=== PATIENT | female | born 1935 | race Caucasian/White ===

== ENCOUNTER 2018-09-13 10:48 | Outpatient (CLI) | payer MEDICARE, BC, OTHER ==
--- NOTE | 2018-09-13 13:04 | CT ---
CT LUMBAR SPINE WITHOUT CONTRAST: INDICATIONS: History of back pain after a fall three weeks ago. FINDINGS: There is a superior endplate compression abnormality of L2, of undetermined chronicity. There is gra de 1 anterolisthesis of L5 on S1, which is likely degenerative in nature. There is advanced facet os teoarthrosis at L5-S1. There is loss of normal disk height, in addition to facet degenerative change , at L5-S1, inducing moderate to severe bilateral neural foraminal narrowing. At L4-L5, there is moderate bilateral neural foraminal narrowing due to a broad-based disk bulge and facet joint degenerative change. There is at least mild central canal narrowing due to the broad-bas ed bulge and ligamentum flavum hypertrophy. At L3-L4, there is a broad-based bulge with facet hypertrophy, inducing at least mild central canal n arrowing with mild to moderate bilateral neural foraminal narrowing. At L2-L3, there is a broad-based bulge with facet hypertrophy, inducing at least mild central canal n arrowing and mild bilateral neural foraminal narrowing. At L1-L2, there is a broad-based disk osteophyte complex with facet hypertrophy, inducing at least mi ld central canal narrowing and mild bilateral neural foraminal narrowing. There is a 2 cm exophytic lesion involving the superior pole of the right kidney, consistent with a c yst. There are moderate calcifications involving the abdominopelvic vasculature. IMPRESSION: 1. Age indeterminate superior endplate compression fracture at L2. The appearance of some mild infl ammatory straightening in and around the area suggests that this is likely an acute superior endplate compression abnormality. A whole body bone scan may be helpful to document acuity. 2. Multilevel spondylosis with multilevel central canal and neural foraminal narrowing demonstrated. 3. Exophytic superior pole right renal cyst. POS: [facility]
== END 2018-09-13 10:49 | disposition home or self-care (01) ==
LOC: SCSCT 10:48
PROVIDERS: ATTEND Nurse Practitioner Family
DX: M48.062 Spinal stenosis, lumbar region with neurogenic claudication (principal); M47.816 Spondylosis without myelopathy or radiculopathy, lumbar region; M99.83 Other biomechanical lesions of lumbar region; N28.1 Cyst of kidney, acquired
CPT/HCPCS: 72131

== ENCOUNTER 2019-04-18 03:25 | Inpatient (IN) | payer MEDICARE, BC, OTHER ==
[2019-04-18] MEDS ORDERED: Morphine 2 MG/ML SYRINGE ONE (05:00)
[2019-04-18] MEDS ORDERED: Dexamethasone 4 MG TAB PO SCH (07:15)
[2019-04-18] MEDS ORDERED: Acetaminophen 325 MG TAB PO PRN (07:34)
[2019-04-18] MEDS ORDERED: Ondansetron ODT 4 MG TAB PO PRN (07:34)
[2019-04-18] MEDS ORDERED: Senokot S 8.6-50 MG TAB PO PRN (07:34)
[2019-04-18] MEDS ORDERED: hydrALAZINE 20 MG/ML VIAL SLOW IVP PRN (07:34)
[2019-04-18] MEDS ORDERED: Loperamide HCl 2 MG CAP PO PRN (07:34)
[2019-04-18] MEDS ORDERED: Loratadine 10 MG TAB PO PRN (07:34)
[2019-04-18] MEDS ORDERED: HYDROcodone/Acetaminophen 5/325 mg Tablet PO PRN (07:34)
[2019-04-18] MEDS ORDERED: Zolpidem Tartrate 5 MG TAB PO PRN (07:34)
[2019-04-18] MEDS ORDERED: Ondansetron PF 4 MG/2 ML Vial IVP PRN (07:34)
[2019-04-18] MEDS ORDERED: Calcium Carbonate 500 MG ChewTAB PO PRN (07:34)
[2019-04-18] MEDS ORDERED: Bisacodyl 10 MG SUPP PR PRN (07:34)
[2019-04-18] MEDS ORDERED: Cepastat Lozenges 1 LOZ PO PRN (07:34)
[2019-04-18] MEDS ORDERED: Sodium Chloride 0.65% Nasal 44 ML BOT EA NARE PRN (07:34)
[2019-04-18] MEDS ORDERED: Diabetic Tussin 200 MG/10 ML UDCUP PO PRN (07:34)
[2019-04-18 07:38] VITALS: BMI 28.3
[2019-04-18 08:21] LABS: #Monocytes 0.1 thou/uL (0.11-0.59); #Neutrophils 5.7 thou/uL (1.40-6.50); %Basophils 0.2 % (0.0-1.0); %Eosinophils 0.6 % (0.0-10.0); %Lymphocytes 14.1 % (21.0-51.0); %Monocytes 1.4 % (0.0-10.0); %Neutrophils 83.7 % (42.0-75.0); Hemoglobin 15.7 g/dL (12.0-16.0); Mean Corpuscular HGB CONC 34.3 g/dL (32.0-36.0); Mean Corpuscular Hemoglobin 32.2 pg (27.0-31.0); Mean Corpuscular Volume 93.7 fL (78.0-98.0); Mean Platelet Volume 7.4 fL (7.4-10.4); Platelet Count 207 thou/uL (130-400); RBC Distribution Width 11.8 % (11.5-14.5); Red Blood Cell (RBC) Count 4.87 mill/uL (4.20-5.40); White Blood Cell (WBC) Count 6.9 thou/uL (4.8-10.8)
[2019-04-18 08:41] LABS: ALT (SGPT) 16 U/L (8-55); AST (SGOT) 22 U/L (5-34); Albumin 4.6 g/dL (3.4-4.8); Alkaline Phosphatase 107 U/L (40-150); Anion Gap 16 mmol/L (10-20); BUN (Urea Nitrogen) 16 mg/dL (9.8-20.1); Bilirubin, Total 1.2 mg/dL (0.2-1.2); Calc. Creatinine Clearance 46 mL/min (70-130); Calcium 10.6 mg/dL (7.8-10.44); Carbon Dioxide 26 mmol/L (23-31); Chloride 91 mmol/L (98-107); Estimated GFR-MDRD 46; Globulin 3.1 g/dL (2.4-3.5); Glucose 134 mg/dL (83-110); Potassium 3.8 mmol/L (3.5-5.1); Protein, Total 7.7 g/dL (6.0-8.3); Sodium 129 mmol/L (136-145)
[2019-04-18] MEDS ORDERED: Famotidine 20 MG TAB PO SCH (09:00)
[2019-04-18] MEDS ORDERED: traMADol HCl 50 MG TAB PO PRN ×2 (09:27→10:11)
[2019-04-18 11:34] LABS: PTT 27.8 SEC (22.9-36.1); Prothrombin Time 13.3 SEC (12.0-14.7)
[2019-04-18] MEDS: Dexamethasone 4 MG TAB PO SCH ×3 (11:42→23:18)
--- NOTE | 2019-04-18 11:55 | HP ---
PRIMARY CARE PHYSICIAN: Kev Regalado MD REASON FOR ADMISSION: Transferred from [facility] for diagnosis of brain mass. HISTORY OF PRESENT ILLNESS: An 84-year-old female, who has underlying history of COPD as well as chronic respiratory failure, on home oxygen on as needed basis, especially during nighttime, who was complaining of nausea and weakness and lower extremity pain. This symptoms are going on for about 7 days. As per the patient's family member, they went to [facility] about 7 to 10 days ago. At that time, the patient had CT abdomen and pelvis. As per family member, they found spot in liver. She was given symptomatic treatment for nausea and she was discharged from emergency room. She was given Zofran on discharge from ER. With that treatment, the patient felt better, but her symptoms again returned on Monday. She was having nausea. She was having bilateral lower extremity pain. She does have low back pain as well and she is following Dr. Casanova for her back injection periodically. She was also having headache, which was in right-sided occipital region, throbbing in nature, associated with nausea, but no vomiting. The patient was given morphine and Decadron at [facility]. After that, her pain subsided. After first emergency room visit on April 11, 2019, the patient found with liver lesion, which was suspected for metastatic disease and that is why they planned for outpatient oncology workup. The patient also seen by primary care physician on Monday and the patient had a chest x-ray done on Monday, which showed some suspected upper lobe mass. Subsequently, the patient underwent CT of the chest , but results are not known. The patient was given Phenergan today and that helped her nausea as well. The patient was somnolent after Phenergan and she was having lower extremity twitching pain. She also has underlying restless legs syndrome. Since emergency room treatment at [facility], the patient does not have any more pain. Over there, she had CT brain and they found a some brain mass and that is why she was sent to our hospital for higher level of care. PAST MEDICAL HISTORY: 1. History of breast cancer, treated with bilateral mastectomy. She also had lymph node dissection. She finished hormonal therapy, but she is off treatment for a period of time. 2. COPD. The patient has home oxygen requirement and she is using during nighttime. 3. Gastroesophageal reflux disease. 4. Hypertension. 5. Dyslipidemia. 6. Chronic respiratory failure, on home oxygen therapy. PAST SURGICAL HISTORY: Pacemaker placement, bilateral mastectomy, cholecystectomy, tonsillectomy, and hysterectomy. PAST PSYCHIATRIC HISTORY: Reviewed and negative. SOCIAL HISTORY: The patient lives with her daughter. No history of tobacco, alcohol, or illicit drug abuse. She is ex-smoker, quit smoking more than 10 years ago. FAMILY HISTORY: No family history of coronary artery disease, stroke, or cancer. ALLERGIES: AZITHROMYCIN, CODEINE, AND HYDROCODONE. CURRENT HOME MEDICATIONS: 1. Advair Diskus 250/50 one inhalation daily. 2. Amlodipine 5 mg daily. 3. Aspirin 81 mg daily. 4. Lipitor 40 mg p.o. daily. 5. Azelastine nasal spray daily. 6. Buspirone 7.5 mg daily. 7. Coreg 3.125 mg b.i.d. 8. Celecoxib 200 mg p.o. daily. 9. Clonidine 0.1 mg as needed. 10. Gabapentin 100 mg 3 times daily. 11. Losartan with hydrochlorothiazide 50/12.5 one tablet daily. 12. Singulair 10 mg daily. 13. Protonix 40 mg p.o. daily. 14. ProAir HFA as needed basis. 15. Spiriva 18 mcg inhalation daily. 16. Tramadol 50 mg q.6 hourly p.r.n. 17. Ambien 5 mg p.o. daily. EMERGENCY ROOM COURSE: In the emergency room, the patient has received morphine 2 mg and she is given Decadron 10 mg, IV fluid, and morphine 2 mg and Zofran 4 mg at [facility]. REVIEW OF SYSTEM: All review of system reviewed and negative except as mentioned in HPI. PHYSICAL EXAMINATION: VITAL SIGNS: In our emergency room, blood pressure 164/98, pulse 83, respiratory rate 18, temperature 98.4, and saturation 93% on 2 L oxygen. Weight 79.4 kg. GENERAL: The patient is currently alert, awake, hypertensive. No obvious acute distress. HEENT: Head; normocephalic, atraumatic. Eyes; pupils are round and reactive to light. Extraocular muscle intact. ENT; oropharynx within normal limits. Moist mucous membranes. No oral lesion. No pharyngeal erythema. No exudate. NECK: Supple. No JVD. No thyromegaly. No carotid bruit. No jugular venous distention. LUNGS: Clear to auscultation without any rhonchi or rales. CARDIAC: S1 and S2. Regular without any murmur. No gallop. No rub. ABDOMEN: Soft. Bowel sounds present. Nontender. Nondistended. No organomegaly. No mass. No suprapubic tenderness. BACK: No point tenderness in upper extremities. Passive movement of all joints are normal. Lower extremity, no edema. Good distal pulsation. SKIN: No skin rash. HEMATOLOGICAL SYSTEM: No lymphadenopathy. PSYCHIATRIC: Normal affect. SIGNIFICANT LABS: Currently CBC, WBC of 6.9, hemoglobin 15.7, and platelet 207. BMP; sodium 129, potassium 3.8, chloride 91, carbon dioxide 26, BUN 16, creatinine 1.12, glucose 134, and calcium 10.6. LFT; AST 22, ALT 16, alkaline phosphatase 107, and albumin 4.6. CT brain done at [facility] showing 1.8-cm mass within left cerebellum with surrounding edema, which result in enhancement of fourth ventricle. The patient also has bifrontal edema suspicious for metastatic lesion. I have reviewed CBC, CMP, and emergency room course and record from [facility]. ASSESSMENT AND PLAN: 1. Nausea, headache, focal motor weakness. The patient also found with left cerebellar mass with vasogenic edema suspicious for metastatic lesion. This patient had a CT abdomen and pelvis at [facility] that we will obtain records to see if she has any metastatic lesion to liver. She also had a chest x-ray recently, which showed some abnormality finding and she also had a CT chest over there. We will obtain medical record from them. At this point, the patient's presentation is most likely related with metastatic lesion. Source unclear, but given the patient's previous history of breast cancer, possibility of a metastatic breast cancer is possible. At this point, Neurosurgeon has been consulted. Oncology has been consulted and further treatment decision will defer to them. 2. Lumbar stenosis with chronic low back pain. Pain will be controlled with pain medication. 3. Hyponatremia. The patient will be given gentle IV fluid with NS at 50 mL/h and we will do hyponatremia workup to rule out syndrome of inappropriate antidiuretic hormone secretion. 4. Hypertension. We will continue amlodipine 5 mg b.i.d. Losartan with hydrochlorothiazide 50/12.5 one tablet twice daily. 5. Chronic obstructive pulmonary disease with chronic respiratory failure. We will continue Dulera 2 puff inhalation b.i.d., DuoNeb q.6 hourly, Flonase nasal spray daily, and azelastine nasal spray daily. 6. Dyslipidemia. We will continue Lipitor 40 mg p.o. at bedtime. 7. Gastroesophageal reflux disease. We will continue Protonix 40 mg p.o. daily. 8. Deep venous thrombosis prophylaxis, SCD boots. 9. Gastrointestinal prophylaxis, Protonix 40 mg p.o. daily. 10. Code status: At this point, the patient has not decided about her code status. She wants to be a full code. 11. Disposition plan: Based on clinical course, plan of care discussed with the patient and family member in detail. Job ID: [id number] MTDD
--- NOTE | 2019-04-18 12:30 | CON ---
DATE OF CONSULTATION: REASON FOR CONSULT: Brain mass. HISTORY OF PRESENT ILLNESS: Ms. Olivo is a pleasant 84-year-old female, who was in her usual state of health until last week when she began to have significant nausea. She was seen in the [facility] and a CT scan was ordered, which showed a possible liver lesion, although I have no record of that. The patient was given nausea medicine and sent home. She followed up with her primary care that next Monday, who ordered a chest x-ray. There was apparently some haziness in the left upper lobe, so CT scan was ordered. She continued to have nausea and was given a prescription for Phenergan. She had her CT scan done on Monday. Again, results are unknown at this time. She began to take the Phenergan and had some altered mental status. That evening she was significantly confused and brought to [facility] for further evaluation. She underwent a head CT scan, which apparently showed a hyperdense mass measuring 1.8 cm within the left cerebellum. There was surrounding edema with additional regions of bifrontal edema suspicious for underlying metastatic lesions. She was transferred to this emergency room and admitted by Neurosurgery for further workup. The patient has been more lucid today, though she is slow to answer her questions. She denies any headache, blurred vision. No weakness in her extremities. She denies shortness of breath. No weight loss or poor appetite. She does have a remote history of breast cancer 21 years ago and has undergone bilateral mastectomy. Long tern smoker. History was obtained from the patient and daughter at bedside and review of medical records. PAST MEDICAL HISTORY: 1. Breast cancer. 2. COPD. 3. GERD. 4. Hyperlipidemia. 5. Hypertension. PAST SURGICAL HISTORY: 1. Bilateral mastectomy. 2. Pacemaker insertion. 3. Appendectomy. 4. Cholecystectomy. 5. Tonsillectomy. 6. Hysterectomy. ALLERGIES: AZITHROMYCIN, CODEINE, HYDROCODONE, PREDNISONE, PROPOXYPHENE, AND VICODIN, ALL OF WHICH MAKE HER NAUSEATED. HOME MEDICATIONS: 1. Advair Diskus. 2. Amlodipine 5 mg daily. 3. Aspirin 81 mg daily. 4. Atorvastatin 40 mg daily. 5. Buspirone 7.5 mg daily. 6. Coreg 3.125 mg daily. 7. Celecoxib 200 mg daily. 8. Clonidine 0.1 mg. 9. Gabapentin 100 mg. 10. Losartan hydrochlorothiazide. 11. Protonix 40 mg. 12. ProAir p.r.n. 13. Spiriva daily. 14. Tramadol p.r.n. 15. Zofran 5 mg p.r.n. FAMILY HISTORY: Noncontributory. SOCIAL HISTORY: , lives with her daughter. 60-pack year history of smoking. No alcohol or illicit drug use. REVIEW OF SYSTEMS: Ten-point review of systems is negative, except for noted in HPI. PHYSICAL EXAMINATION: VITAL SIGNS: Temperature 98.3, pulse 84, respiratory rate 18, BP 145/89. She is 94% on 2 L. GENERAL: Well-developed, well-nourished female, in no acute distress. HEENT: Normocephalic, atraumatic. Pupils are equal and reactive to light. NECK: Supple. CV: Regular rate and rhythm. LUNGS: Clear anterior. ABDOMEN: Soft and nontender. Bowel sounds are positive. There is no organomegaly. EXTREMITIES: No clubbing, cyanosis, or edema. SKIN: No rash. HEMATOLOGICAL: No petechiae or purpura. NEUROLOGICAL: Nonfocal. The patient is alert and oriented PERTINENT LABS AND X-RAYS: Current WBCs are 6.9, hemoglobin 15.7, hematocrit 45.6, platelet count is 207,000. She has 84% neutrophils, 14% lymphocytes. Sodium is 129, potassium is 3.8, chloride is 91, CO2 is 26, BUN is 16, creatinine is 1.12, calcium is 10.6, bilirubin is 1.2. AST is 22, ALT is 16, alkaline phosphatase is 107. Serum total protein is 7.7, albumin 4.6, globulin 3.1. IMAGING STUDIES: The patient had a CT of the chest, abdomen, and pelvis done at the [facility]. No reports or films are available. On CT scan per HPI from ER report only. ASSESSMENT: 1. 1.8 cm brain lesion. 2. Reported liver and lung lesion. DISCUSSION: The patient in discussion with family. She will obtain disk of the CT scan of her abdomen, pelvis, and chest. Once those are obtained, we will determine, if there is a lesion that we can be biopsied for diagnosis. Neurosurgery is seeing the patient for her brain lesions. I am sure she will have an MRI of her brain. Her calcium is slightly elevated on this admission, but review of her medical record last night shows a calcium of 9.5. She is getting IV hydration, and we will continue to monitor that. We will continue steroids q.6 hours and further recommendations will depend on biopsy and results. Job ID: [id number] MTDD
[2019-04-18] MEDS: Ipratropium Bromide 2.5 ml Neb NEB SCH ×2 (13:50→19:07)
--- NOTE | 2019-04-18 15:59 | CON ---
DATE OF CONSULTATION: HISTORY OF PRESENT ILLNESS: Briefly, Ms. Olivo is an 84-year-old female, who was taken to [facility] last night for lethargy, nausea, generalized weakness. She was at the [facility] last week for similar symptoms with a lesion on the liver that was found at that time. She was following up with her primary care, working up for possible metastatic disease. The patient's daughter states that she had breast cancer 21 years ago. She had bilateral mastectomy with 3 lymph nodes removed. There was no chemo or radiation at that time. She was meticulously followed up and until last week, she had no repeated symptoms or cancer tumors that were noted. She was transferred over to [facility] for consult with Oncology as well as Neurosurgery due to a lesion found in the cerebellum. She is resting in her hospital bed. She claims she has to urinate. She is nauseated. She is alert and oriented to person and place. She is normally a fairly independent woman. She lives with her daughter and son-in-law, and dresses herself and takes care of herself, prepares meals if she needs to. She states that her lower extremities have been more painful than normal, but this is "normal" due to some herniated disks that she has had for some time. Strength in the upper and lower extremities are good. Range of motion is normal. There are no lateralizing deficit. She has a slight right-sided facial droop when she smiles, but otherwise there are no motor deficits. There is a little bit of nystagmus horizontally. REVIEW OF SYSTEMS: A 10-point review of systems has been completed and is negative other than stated in the above HPI. ALLERGIES: ERYTHROMYCIN, CODEINE, HYDROCODONE, AND VICODIN. CURRENT MEDICATIONS: 1. Advair Diskus. 2. Amlodipine. 3. Aspirin. 4. Atorvastatin. 5. Azelastine. 6. Buspirone. 7. Carvedilol. 8. Celexa. 9. Clonidine. 10. Gabapentin. 11. Losartan/hydrochlorothiazide. 12. Montelukast. 13. Pantoprazole. 14. ProAir. 15. Spiriva. 16. Tramadol. 17. Zolpidem. PAST MEDICAL HISTORY: Breast cancer, COPD, GERD, HLD, and hypertension. PAST SURGICAL HISTORY: Peacemaker, bilateral mastectomy, cholecystectomy, tonsillectomy, and hysterectomy. SOCIAL HISTORY: The patient denies alcohol or drug use. She has no smoking history. She lives with her daughter and son-in-law in their home and is independent for most activities. PHYSICAL EXAMINATION: CONSTITUTIONAL: The patient is alert and oriented. VITAL SIGNS: She is afebrile, normotensive. HEENT: Head is normocephalic and atraumatic. Pupils are equal, round, and reactive to light. Extraocular movements are intact. Hearing is intact. Moist mucous membranes. RESPIRATIONS: Normal. Symmetric chest rise. Normal work of breathing. EXTREMITIES: Upper extremity, there is normal range of motion. Bilateral strength 5/5 in deltoids, biceps, triceps, planner/scheduler strength. Lower extremities, generalized weakness with hip flexion. Normal dorsiflexion and plantar flexion strength. No change in sensation bilaterally. NEURO: The patient is alert and oriented. Cranial nerves II through XII are tested and intact with the exception of a slight right-sided facial droop. Speech is spontaneous and fluent. There are no lateralizing motor or sensory deficits. She has mild nystagmus horizontally and [id number] is smooth bilaterally. IMAGING: CT of the head shows left cerebellar lesion following with several areas of edema. There is effacement of the fourth ventricle. ASSESSMENT AND PLAN: Ms. 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 Given her history, she potentially has a lesion on her liver as well. From a neurosurgical standpoint, we recommend MRI of the brain with and without contrast. If this is unable to be obtained due to her pacemaker, then we would recommend CT with and without contrast of the brain. She was given Decadron at [facility] and we recommend that she stays on steroid for swelling. We will discuss with the patient and family whether they want to move forward with surgery given the amount of swelling. However, her age would limit the likelihood of a significant positive outcome. Job ID: [id number]
--- NOTE | 2019-04-18 16:58 | PRG ---
DATE OF SERVICE: I personally interviewed and examined the patient, and agreed with documentation of Phuong Grider PA-C, dated 04/18/2019 from [facility] and from [facility]. Briefly, Lindsay Olivo is an 84-year-old woman with a very remote history of node-negative breast cancer, treated with surgery, but no adjuvant therapy who has been well for the last 20 years. She is a former smoker. With this history, she started complaining of nausea last week. Scan of the abdomen revealed a small lesion in the liver. Symptoms worsened and eventually evolved headache and vomiting. CT examination of the brain revealed a lesion in the cerebellum as well as likely lesions in the cerebral hemispheres with surrounding vasogenic edema suggestive of multiple metastases. There is a lack of Oncology call coverage at [facility]. She was transferred to [facility] for further treatment and workup. Overnight, Ms. Olivo was given Decadron and proton pump inhibitors. She is more alert now that the steroids are taking effect. She has a pacemaker precluding MR imaging of the brain. She had a CT of the chest, abdomen, and pelvis done at [facility], but the report is not available in the chart. I have reviewed it and I see an exophytic lesion in the kidney, one lesion in the liver. I am not sure if there are mediastinal nodes. There is a lung lesion. She is alert and she is oriented. She asked very pointed and insightful questions. Her cognitive function is normal. I do not find any cranial neuropathies. There might be some left end gaze nystagmus. There are any dysmetrias in the left hand, not the right. I do not find any lateralizing motor or sensory deficits. CT imaging shows effacement of the fourth ventricle from the left cerebral hemisphere lesion with surrounding vasogenic edema. In the right frontal lobe and the left frontal lobe, there are areas of vasogenic edema surrounding what is likely metastatic disease as well. My plan for Ms. Olivo is to have a definitive diagnosis made so that we can make more realistic predictions about her future treatments, their side effects, and their efficacy. I would like a contrast scan of the brain done with [facility] protocol because the most ideal scan is impossible. I will follow up the results of those tests. We will keep her on Decadron until we make a decision as to surgical intervention. The posterior fossa surgery in an 84-year-old have significant risk and morbidity, but without it, edema is likely to worsen and obstructive hydrocephalus could ensue. This may be preferable to her in the rigors of cancer treatment, and eventually the decision will be up to her. If, however, the lesion proves to be exquisitely sensitive to adjuvant therapies, like small cell cancer of the lung, we may be able to treat her without surgical intervention. Job ID: [id number] [facility]ALSkye
[2019-04-18 17:59] LABS: Bilirubin Negative (Negative); Blood, Urine Negative (Negative); Clarity CLEAR (Clear); Glucose, Urine (Dipstick) Negative (Negative); Leukocyte Negative (Negative); Nitrite Negative (Negative); Protein, Urine (Dipstick) Negative (Neg-Trace); Specific Gravity, Urine 1.005 (1.002-1.036); Urobilinogen 0.2 mg/dL (0.2-1.0); pH, Urine 6.5 (5.0-9.0)
[2019-04-18 18:02] LABS: Bacteria/HPF None Seen HPF (None Seen); Hyaline Casts/LPF 0-3 HYALINE CAST LPF (0-3 Hyaline); Pathc Cast-AUWi Flag 0.13 (0-2.49); RBC/HPF 0-3 HPF (0-3); Squamous Epithelial None Seen HPF (0-3); WBC/HPF None Seen HPF (0-3)
[2019-04-18 18:39] LABS: Creatinine, Urine 30.21 mg/dL (47-110)
[2019-04-18] MEDS: Mometasone/Formoterol 120 PUFF INHALER INH SCH (19:16)
[2019-04-18] MEDS ORDERED: Non-Formulary Item 1 EACH (Fluticasone/Salmeterol [Advair Diskus 250/50] 1 INH) PO SCH (21:00)
[2019-04-18] MEDS ORDERED: EZETIMIBE PO SCH (21:00)
[2019-04-18] MEDS ORDERED: SIMVASTATIN PO SCH (21:00)
[2019-04-18] MEDS ORDERED: Simvastatin 40 MG TAB PO SCH (21:00)
[2019-04-18] MEDS: Ezetimibe 10 MG TAB PO SCH (23:09)
[2019-04-18] MEDS: Amlodipine 5 MG TAB PO SCH (23:20)
[2019-04-18] MEDS: Morphine 4 MG/ML VIAL SLOW IVP PRN (23:21)
[2019-04-18] MEDS: Carvedilol 3.125 MG TAB PO SCH (23:21)
[2019-04-19] MEDS: Ipratropium Bromide 2.5 ml Neb NEB SCH ×4 (00:15→18:55)
[2019-04-19 05:46] LABS: #Lymphocytes 1.7 thou/uL (1.20-3.40); #Neutrophils 9.9 thou/uL (1.40-6.50); %Basophils 0.1 % (0.0-1.0); %Eosinophils 0.1 % (0.0-10.0); %Lymphocytes 13.4 % (21.0-51.0); %Monocytes 7.8 % (0.0-10.0); %Neutrophils 78.6 % (42.0-75.0); Hemoglobin 14.3 g/dL (12.0-16.0); Mean Corpuscular HGB CONC 33.9 g/dL (32.0-36.0); Mean Corpuscular Hemoglobin 31.9 pg (27.0-31.0); Mean Platelet Volume 7.5 fL (7.4-10.4); Platelet Count 225 thou/uL (130-400); RBC Distribution Width 12.3 % (11.5-14.5); White Blood Cell (WBC) Count 12.5 thou/uL (4.8-10.8)
[2019-04-19] MEDS: Dexamethasone 4 MG TAB PO SCH ×3 (05:57→17:49)
[2019-04-19 06:04] LABS: Anion Gap 16 mmol/L (10-20); BUN (Urea Nitrogen) 25 mg/dL (9.8-20.1); Calc. Creatinine Clearance 43 mL/min (70-130); Calcium 10.1 mg/dL (7.8-10.44); Carbon Dioxide 24 mmol/L (23-31); Chloride 99 mmol/L (98-107); Estimated GFR-MDRD 44; Glucose 142 mg/dL (83-110); Potassium 3.7 mmol/L (3.5-5.1); Sodium 135 mmol/L (136-145)
[2019-04-19] MEDS: Morphine 4 MG/ML VIAL SLOW IVP PRN (06:14)
[2019-04-19] MEDS: Mometasone/Formoterol 120 PUFF INHALER INH SCH ×2 (06:54→18:58)
[2019-04-19] MEDS ORDERED: Montelukast Sodium 10 mg Tablet PO SCH (09:00)
[2019-04-19] MEDS ORDERED: Spiriva 18 MCG CAP (Box of 5 Caps) INH SCH (09:00)
[2019-04-19] MEDS: Montelukast Sodium 10 mg Tablet PO SCH (09:19)
[2019-04-19] MEDS: Famotidine 20 MG TAB PO SCH (09:20)
[2019-04-19] MEDS: Amlodipine 5 MG TAB PO SCH ×2 (09:20→22:26)
[2019-04-19] MEDS: Carvedilol 3.125 MG TAB PO SCH ×2 (09:20→22:26)
[2019-04-19] MEDS ORDERED: Sodium Bicarbonate 2.5 MEQ/5 ML VIAL ONE (10:24)
[2019-04-19] MEDS ORDERED: Fentanyl 100 MCG/2 ML VIAL ONE (10:24)
[2019-04-19] MEDS ORDERED: Midazolam HCl 2 mg/2 ml Vial ONE (10:24)
--- NOTE | 2019-04-19 11:04 | PDOC.PN ---
- Subjective Encounter Start Date: 04/19/19 Encounter Start Time: 08:00 Patient seen and examined. No new complaints. No overnight events - Objective MAR Reviewed: Yes Vital Signs & Weight: Vital Signs (12 hours) Temp Pulse Resp BP BP Pulse Ox 04/19/19 09:20 79 04/19/19 08:00 94 L 04/19/19 07:13 97.9 F 79 18 115/74 90 L 04/19/19 07:02 99 04/19/19 07:01 77 18 99 04/19/19 06:54 77 16 99 04/19/19 04:00 98.3 F 87 18 122/81 93 L 04/19/19 00:15 84 16 92 L 04/19/19 00:00 98.1 F 84 20 154/94 H 92 L 04/18/19 23:20 84 128/86 Weight Weight 170 lb I&O: 04/18/19 04/19/19 04/20/19 06:59 06:59 06:59 Intake Total 1240 Balance 1240 Result Diagrams: 04/19/19 04:53 04/19/19 04:53 Phys Exam - Physical Examination Constitutional: NAD HEENT: PERRLA, moist MMs, sclera anicteric Neck: no JVD, supple Respiratory: no wheezing, no rales, no rhonchi Cardiovascular: RRR, no significant murmur, no rub Gastrointestinal: soft, non-tender, no distention, positive bowel sounds Musculoskeletal: no edema, pulses present Neurological: non-focal, normal sensation Lymphatic: no nodes Psychiatric: normal affect, A&O x 3 Skin: no rash, normal turgor Dx/Plan (1) Brain lesion Code(s): G93.9 - DISORDER OF BRAIN, UNSPECIFIED Status: Acute (2) Hyponatremia Code(s): E87.1 - HYPO-OSMOLALITY AND HYPONATREMIA Status: Acute (3) Lesion of lung Code(s): R91.1 - SOLITARY PULMONARY NODULE Status: Acute (4) Liver lesion Code(s): K76.9 - LIVER DISEASE, UNSPECIFIED Status: Acute (5) CKD (chronic kidney disease) stage 3, GFR 30-59 ml/min Code(s): N18.3 - CHRONIC KIDNEY DISEASE, STAGE 3 (MODERATE) Status: Chronic (6) COPD (chronic obstructive pulmonary disease) Status: Chronic (7) Chronic low back pain Code(s): M54.5 - LOW BACK PAIN; G89.29 - OTHER CHRONIC PAIN Status: Chronic (8) Chronic respiratory failure with hypoxia, on home O2 therapy Code(s): J96.11 - CHRONIC RESPIRATORY FAILURE WITH HYPOXIA; Z99.81 - DEPENDENCE ON SUPPLEMENTAL OXYGEN Status: Chronic (9) Dyslipidemia Code(s): E78.5 - HYPERLIPIDEMIA, UNSPECIFIED Status: Chronic (10) GERD (gastroesophageal reflux disease) Code(s): K21.9 - GASTRO-ESOPHAGEAL REFLUX DISEASE WITHOUT ESOPHAGITIS Status: Chronic (11) Hypertension Code(s): I10 - ESSENTIAL (PRIMARY) HYPERTENSION Status: Chronic - Plan cont current plan of care, plan discussed w/ family * today lung biopsy * will monitor today * possible DC tomorrow * medication reviewed as below * symptomatic treatment. * metastasis suspected but primary unknown * add mirapex for restless leg syndrome Review of Systems - Review of Systems Constitutional: negative: fever, chills, sweats, weakness, malaise, other Eyes: negative: Pain, Vision Change, Conjunctivae Inflammation, Eyelid Inflammation, Redness, Other ENT: negative: Ear Pain, Ear Discharge, Nose Pain, Nose Discharge, Nose Congestion, Mouth Pain, Mouth Swelling, Throat Pain, Throat Swelling, Other Respiratory: negative: Cough, Dry, Shortness of Breath, Hemoptysis, SOB with Excertion, Pleuritic Pain, Sputum, Wheezing Cardiovascular: negative: chest pain, palpitations, orthopnea, paroxysmal nocturnal dyspnea, edema, light headedness, other Gastrointestinal: negative: Nausea, Vomiting, Abdominal Pain, Diarrhea, Constipation, Melena, Hematochezia, Other Genitourinary: negative: Dysuria, Frequency, Incontinence, Hematuria, Retention , Other Musculoskeletal: negative: Neck Pain, Shoulder Pain, Arm Pain, Back Pain, Hand Pain, Leg Pain, Foot Pain, Other Skin: negative: Rash, Lesions, Wagner, Bruising, Other Neurological: negative: Weakness, Numbness, Incoordination, Change in Speech, Confusion, Seizures, Other - Medications/Allergies Allergies/Adverse Reactions: Allergies Allergy/AdvReac Type Severity Reaction Status Date / Time acetaminophen [From Vicodin] Allergy Intermediate Nausea Verified 04/18/19 08:43 codeine Allergy Intermediate Nausea Verified 04/18/19 08:43 azithromycin Allergy Mild Rash Verified 04/18/19 08:43 hydrocodone Allergy Mild Nausea Verified 04/18/19 08:43 Medications: Current Medications Hydrocodone Bitart/Acetaminophen ([place] 5/325) 1 tab PO Q4H PRN PRN Reason: Moderate Pain (4-6) Amlodipine Besylate (Norvasc) 5 mg PO BID [facility] Last Admin: 04/19/19 09:20 Dose: 5 mg Bisacodyl (Dulcolax) 10 mg DC DAILYPRN PRN PRN Reason: Constipation Calcium Carbonate (Tums) 1,000 mg PO Q4H PRN PRN Reason: Heartburn or Indigestion Carvedilol (Coreg) 3.125 mg PO BID [facility] Last Admin: 04/19/19 09:20 Dose: 3.125 mg Dexamethasone (Decadron) 4 mg PO Q6HR [facility] Last Admin: 04/19/19 05:57 Dose: 4 mg Ezetimibe (Zetia) 10 mg PO HS [facility] Last Admin: 04/18/19 23:09 Dose: Not Given Famotidine (Pepcid) 20 mg PO DAILY [facility] Last Admin: 04/19/19 09:20 Dose: 20 mg Guaifenesin (Robitussin Sf) 200 mg PO Q4H PRN PRN Reason: Cough Hydralazine HCl (Apresoline) 10 mg SLOW IVP Q4H PRN PRN Reason: SBP > 180 and HR < 70 Ipratropium [place] (Atrovent) 2.5 ml NEB [id number] [facility] Last Admin: 04/19/19 07:01 Dose: 2.5 ml Loperamide HCl (Imodium) 2 mg PO PRN PRN PRN Reason: Diarrhea/Loose Stools Loratadine (Claritin) 10 mg PO DAILYPRN PRN PRN Reason: Sinus Symptoms Mometasone Furoate/Formoterol Fumar (Dulera 200 Mcg/5 Mcg Inhaler) 2 puff INH BID-RT [facility] Last Admin: 04/19/19 06:54 Dose: 2 puff Montelukast Sodium (Singulair) 10 mg PO DAILY [facility] Last Admin: 04/19/19 09:19 Dose: 10 mg Morphine Sulfate (Morphine) 2 mg SLOW IVP Q4H PRN PRN Reason: Pain Last Admin: 04/19/19 06:14 Dose: 2 mg Ondansetron HCl (Zofran Odt) 4 mg PO Q6H PRN PRN Reason: Nausea/Vomiting Ondansetron HCl (Zofran) 4 mg IVP Q6H PRN PRN Reason: Nausea/Vomiting Senna/Docusate Sodium (Senokot S) 2 tab PO BID PRN PRN Reason: Constipation Simvastatin (Zocor) 40 mg PO HS [facility] Last Admin: 04/18/19 23:09 Dose: Not Given Sodium Chloride ([place] Nasal [place] 0.65%) 0 ml EA NARE QIDPRN PRN PRN Reason: Nasal Congestion Sodium Chloride (Flush - Normal Saline) 10 ml IVF Q12HR [facility] Last Admin: 04/19/19 09:20 Dose: 10 ml Sodium Chloride (Flush - Normal Saline) 10 ml IVF PRN PRN PRN Reason: Saline Flush Throat Lozenges (Cepastat Lozenges) 1 celena PO Q2H PRN PRN Reason: Sore Throat Tramadol HCl (Ultram) 50 mg PO Q6H PRN PRN Reason: Pain Zolpidem Tartrate (Ambien) 5 mg PO HSPRN PRN PRN Reason: Insomnia
--- NOTE | 2019-04-19 11:08 | CT ---
CT BRAIN WITH AND WITHOUT CONTRAST: DATE: 04/19/2019 TIME: 5:00 AM CLINICAL HISTORY: Brain lesion. COMPARISON: 04/18/[address] is referenced. FINDINGS: Hemorrhage: Areas of intrinsic hyperdensity related to intracranial lesions indicate hemorrhagic meta stases.. Ventricular system: Stable. Cerebral parenchyma: Rim-enhancing intra-axial lesion of the right frontal lobe measures 7 mm, with s urrounding vasogenic edema. Medial left parietal lobe rim enhancing, cortically based lesion measures 6 mm. Subcortical right posterior, superior temporal lesion with enhancement and surroundin g vasogenic edema measures 4 mm, posterior left periventricular lesion adjacent the left occipital horn with mild surrounding edema measures 4 mm, posterior right temporal lesion measures 6 mm, with s urrounding vasogenic edema, and dominant left cerebellar hemispheric enhancing lesion with surrounding vasogenic edema measures 3.4 cm. Midline shift: None. Calvarium: Normal. Visualized Paranasal sinuses: Clear. IMPRESSION: Numerous intra-axial metastatic lesions, with multifocal rim enhancement, as well as intrinsic hyperd ensity suggestive of hemorrhagic metastases. Transcribed Date/Time: 04/19/2019 11:16 AM
--- NOTE | 2019-04-19 12:02 | RAD ---
EXAM: XR Chest Insp/Exp PROVIDED CLINICAL HISTORY: Post biopsy of left upper lobe mass. A tiny pneumothorax was present post biopsy. COMPARISON: Study obtained at [facility] on 04/16/2019. FINDINGS: A dual-lead left subclavian cardiac pacemaking device remains in place. The left upper lobe mass is a gain seen partially obscured by overlying pacemaking device. A tiny left apical pneumothorax is present. No pleural effusion is seen. Biapical pleural-parenchymal scarring is present with emphysematous changes in the upper lung zones. Cardiac silhouette and pulmonary vasculature are within normal limits. Stable prominence of the left hilar region is noted. No other interval change. IMPRESSION: 1. Tiny left apical pneumothorax. 2. Left upper lobe mass. 3. Prominence left hilum which may be related to an enlarged left hilar lymph node.
--- NOTE | 2019-04-19 12:13 | CT ---
CT Lung Perc Biopsy CT GUIDED LEFT UPPER LOBE MASS BIOPSY: CLINICAL HISTORY: Left upper lobe mass with metastatic lesion in the posterior fossa on MRI brain.. PROCEDURE: After informed consent was obtained, the patient was placed on the CT scan table in the right posteri or oblique position. A noncontrasted CT scan with grid localizer in place was performed through the level of the left upper lobe mass. The patient's skin was prepped and draped in a standard sterile fashion and topical anesthesia with b uffered 1% lidocaine was performed. After a small skin incision was made, an 19-gauge needle was advanced just into the peripheral aspect of the left upper lobe mass. After adequate placement was co nfirmed with CT fluoroscopic imaging, 3 subsequent 20-gauge core biopsy specimens were obtained utilizing coaxial technique. The specimens were submitted to the pathologist for adequacy. Specimens were deemed adequate for interpretation. The introducer needle was removed, and hemostasis was achieved with direct pressure. Follow-up CT scan examination demonstrated tiny left-sided pneumothorax at site of biopsy without gayatri dence of hemorrhage or pleural fluid. The patient's vital signs remained stable during the procedure as well as post procedure. Patient was transported to her hospital room in stable condition . IMPRESSION: Technically successful percutaneous left upper lobe mass biopsy. Pathology results are pending.
--- NOTE | 2019-04-19 14:18 | RAD ---
XR Chest Insp/Exp History: [Lung biopsy] Comparison: Radiograph same day Findings: Interval improvement of the trace left apical pneumothorax. No new basilar pneumothorax. Le ft perihilar and upper lobe mass is similar. Impression: Size decrease left apical pneumothorax.
--- NOTE | 2019-04-19 17:16 | PRG ---
DATE OF SERVICE: 04/19/2019 I saw Ms. Olivo on rounds this afternoon. Phuong Grider PA-C, has seen her in the morning and then consulted with Radiation Oncology, Radiology, and Pathology about the results from today. Ms. Olivo is aware that the pathologist did not obtain a final report, but the likelihood is that this is a lung cancer. We are unsure of which type. When I see, Ms. Olivo is resting comfortably, eating and speaking with her daughter, who is in the room. She is awake and conversant. Her vitals are all stable. Cognitive function is intact. There are no cranial neuropathies. There is no lateralizing motor or sensory deficits. There is any dysmetria smaller than on the left side. Reviewed CT imaging of the brain with contrast. There is an avidly contrast-enhancing lesion in the left hemisphere of the cerebellum with surrounding vasogenic edema that looks like metastasis. There are two periventricular metastases with a small amount of enhancement and a large amount of perilesional edema in the parietal lobes bilaterally. There is also some edema in the frontal lobes bilaterally and most likely a small metastases on either side there as well. Total is five [address]-guided biopsy was done on the lung. Pathologists have the tissue, but no frozen report is available. I spent a few minutes talking with Ms. Olivo. She wants to go home over the weekend. She needs to remain on steroids and either proton pump inhibitor and H2 rickie while she is on the steroids. If this is small cell lung cancer, the adjuvant therapy should take care of the brain lesions. If it does not, and is lung cancer of another type, then left cerebellar lesion with perilesional edema is concerning. She can be treated with radiation therapy if she is in the hospital and we can use external ventricular drain for pressure control, but she may require surgical intervention anyway if swelling increases, surgical intervention may be warranted. If she wants to pursue aggressive treatment or she wants no treatment whatsoever, I think the left cerebellar hemisphere lesion will grow and the edema will enlarge and she develops obstructive hydrocephalus and slowly fade from consciousness. In the end commits her decision to make. I will follow up with her either in person or on the phone when the pathology results are available. Job ID: [id number] [facility]
[2019-04-19] MEDS ORDERED: Pramipexole Di-HCl 0.125 MG TAB PO SCH (21:00)
[2019-04-19] MEDS: Ezetimibe 10 MG TAB PO SCH (22:20)
--- NOTE | 2019-04-19 22:26 | CON ---
DATE OF CONSULTATION: 04/19/2019 Ms. Olivo is an 84-year-old female who appears to have a clinical stage IVB, [id number] lung carcinoma with brain metastasis. I am seeing her today to discuss her options with radiation therapy. HISTORY OF PRESENT ILLNESS: Ms. Olivo about a week ago states that she began sort of a downward spiral. She was having nausea that was pretty significant, but no vomiting. She was also having trouble getting out of bed and began experiencing some headaches. She was seen in the emergency room at [facility] late last week and got some IV fluids and felt much better. She had a good weekend. However, by Monday her symptoms had returned and she went back to the emergency room. She had seen her primary care doctor who was going to order CAT scans, but again by late Monday her symptoms had returned, so she was seen in the emergency room. She had a CT of the head that suggested a possible lesion in the cerebellum. She also had a CT of the chest, which showed 2 left upper lobe lung masses and a possible mass in the liver. Since there was no oncology services at [facility], she was transferred to [place] for workup and evaluation. She has been placed on dexamethasone. Her headaches have resolved and her nausea has resolved. She is feeling much better. Earlier today, she underwent a CT scan of the head with contrast as well as a biopsy of the left upper lobe lung mass. The CT showed multiple lesions in the brain. She has been seen by Medical Oncology and I have been asked to see her to discuss her options for treatment. Pathology is currently pending. Again, she states her headaches have resolved. She was having pain in the back of the right side of the head when she was initially admitted. She has been having some leg cramps as well as some worsening of her restless legs syndrome. She does have chronic back issues for which she has a neuropathy. Presently, she denies any back pain. Her shortness of breath is stable. She has no cough. She denies any weight loss up until her time of diagnosis. She voices no other complaints. PAST MEDICAL HISTORY: 1. Hypertension. 2. Oxygen dependent COPD. 3. History of breast cancer treated nearly 20 years ago with bilateral mastectomy. She did not have chemotherapy or radiation, but took tamoxifen for 5 years. 4. Pacemaker for left bundle branch block. 5. Degenerative disk changes in the lower back for which she sees Dr. Casanova. 6. Restless legs syndrome. 7. Neuropathy, which she has had for couple years with numbness in her left foot. 8. Status post appendectomy. 9. Status post JAMEY/BSO. 10. Status post cholecystectomy. MEDICATIONS ON ADMISSION: 1. Protonix. 2. Hyzaar. 3. PreserVision. 4. Lipitor. 5. Aspirin. 6. Amlodipine. 7. Calcium and vitamin D. 8. Celebrex. 9. Coreg. 10. Singulair. 11. Tramadol. 12. Presently, she is on dexamethasone 4 mg q.6 hours. ALLERGIES: AZITHROMYCIN, WHICH CAUSES A RASH. SHE REPORTS A SENSITIVITY TO PAIN MEDICATION WITH ITCHING, BUT NO RASH. THIS INCLUDES HYDROCODONE, CODEINE, AND ACETAMINOPHEN. SOCIAL HISTORY: She has no cigarette use at the present for the past 6 years. Prior to that, she smoked up to a pack per day for 60 years. She drinks 1-2 alcoholic beverages per day. She lives in town with her daughter and son-in-law. She is retired and is a . FAMILY HISTORY: Her mother at age 92 from dementia. Her father at age 86 from lung cancer. She had a brother who had brain cancer. She also had a son who had metastatic lung cancer. There is no family history of breast cancer. REVIEW OF SYSTEMS: A 12 system review of systems is otherwise negative. PHYSICAL EXAMNATION: VITAL SIGNS: Height 5 feet 5 inches, weight 170 pounds, blood pressure is 132/72, pulse is 76, respirations are 18, temperature is 98.7, O2 saturation is 93% on 3 L nasal cannula. CONSTITUTIONAL: She is alert and oriented and in no apparent distress. She is well-developed and well-nourished. A Karnofsky performance status is in 80%. EYE: Pupils equal, round and reactive to light. EOMs are intact. ENT: Oral cavity and oropharynx revealed no lesion or erythema. Palate elevates symmetrically. Gingiva is intact. NECK: Supple without preauricular, submandibular, cervical, supraclavicular adenopathy. No thyromegaly. Larynx midline. LUNGS: Breathing nonlabored. Distant breath sounds, but otherwise clear to auscultation. There is no dullness to percussion. HEART: Regular rate and rhythm without murmur. No lower extremity edema. Radial and pedal pulses are good. BACK: No tenderness on fist percussion of her spine. LYMPHATIC: No axillary or inguinal adenopathy. ABDOMEN: Soft, nontender, nondistended without mass or hepatosplenomegaly. Liver percusses to normal size. Bowel sounds present. NEUROLOGIC: Cranial nerves 2-12 grossly intact. Motor strength is 5/5 in both upper and lower extremities. Reflexes are brisk, but symmetrical. Gait was not tested. LABORATORY DATA: Pathology from her biopsy is currently pending. CBC revealed a white blood count 12,500 with a hemoglobin of 14.3, hematocrit of 42.3, platelet count of 225,000. Chemistry group showed creatinine of 1.18. Sodium on admission was 129, but was now 135. Her CEA was elevated at 33.22. IMAGING: CT scan of the chest and brain from [facility] without contrast were personally reviewed. She has 2 masses in the left upper lobe of the lung. One is near the apex and measures 2 cm and the other is slightly inferior to that and measures 3.7 cm. I do not appreciate adenopathy although no contrast was given, which hinders at evaluation. There is a lesion in the right lobe of the liver. CT scan of the head reveals at least 6 contrast-enhancing lesions. The largest is in the left cerebellum and measures about 2.5 cm. There was significant surrounding vasogenic edema and probable some mass effect on the 4th ventricle. She has at least 5 other small contrast-enhancing lesions in the brain and on both sides of the cerebrum. ASSESSMENT: Ms. Olivo is an 84-year-old female with a likely clinical stage IVB, [id number] lung cancer. There is remote possibility that this could be metastasis from her previous breast cancer about 20 years ago, although I think this is much less likely. Given her oxygen-dependent chronic obstructive pulmonary disease, I think she is likely going to have a non-small cell carcinoma of the lung with brain metastasis. Pathology will decide that and is currently pending from her biopsy this morning. PLAN: I had a long discussion today with Ms. Olivo and her daughter regarding her diagnosis, prognosis, prognostic factors, and treatment options. While the exact pathology is not known and will determine our treatment choices, I think again she is most likely going to have stage IV metastatic lung cancer. Even if this were to be breast cancer, this would still be a stage IV situation. I explained that treatment is likely not going to be curative in intent, likely treatment is going to be palliative. She has been seen by Dr. Conklin who was considering whether surgical resection needed to be performed of the cerebellar lesion. Given that her symptoms have resolved with the dexamethasone and she has multiple other lesions in the brain, I think we are less inclined to operate in this situation. There certainly would be some concern with morbidity from an operation given her age and location of the tumor. I think we are going to be more inclined toward doing whole-brain radiation therapy. I briefly discussed this with the patient, but she did not want to discuss this in depth at this time until we have the final pathology report. I do not think she is going to be a candidate for radiosurgery given her multiple lesions in the brain. I think again she is going to be best treated with whole-brain radiation therapy. It should be noted that she cannot have an MRI of the brain, because of her pacemaker. I did explain to the patient that there is a significant possibility that she could have some additional lesions that are not visualized on CT scan that we would see on an MRI. The third option that could be entertained would be that of no treatment. Again, given that she has responded well to the steroid therapy, I do not favor that option. I explained to the patient that for most patient's quality of life is better with treatment than without treatment. At this point, we cannot make a final decision regarding her treatment until the final pathology is known. There may be a possibility that she could be discharged over the weekend since she has had her biopsy and basically we are just having her on medical therapy for the moment. I suspect we will have the pathology back either late Monday or Monday. If she does get discharged over the weekend, then I would bring her in as an outpatient early next week to discuss the final pathology and discuss her treatment options and make a final decision regarding her treatment. If she does get discharged over the weekend, then I would send her home on dexamethasone 4 mg p.o. b.i.d. along with either Protonix or Pepcid to help prevent stomach reflux from the dexamethasone. If she does do treatment, we will taper the steroids as an outpatient. Time was taken to answer all of her questions. Thank you for this interesting consultation. Job ID: [id number]
[2019-04-19] MEDS ORDERED: Atorvastatin Calcium 40 MG TAB PO SCH (22:45)
[2019-04-20] MEDS: Dexamethasone 4 MG TAB PO SCH ×3 (00:15→12:59)
[2019-04-20] MEDS: Ipratropium Bromide 2.5 ml Neb NEB SCH ×3 (00:56→12:44)
[2019-04-20] MEDS: Mometasone/Formoterol 120 PUFF INHALER INH SCH (06:44)
[2019-04-20] MEDS: Montelukast Sodium 10 mg Tablet PO SCH (09:08)
[2019-04-20] MEDS: Amlodipine 5 MG TAB PO SCH (09:08)
[2019-04-20] MEDS: Famotidine 20 MG TAB PO SCH (09:08)
[2019-04-20] MEDS: Carvedilol 3.125 MG TAB PO SCH (09:08)
--- NOTE | 2019-04-20 11:08 | DIS ---
DATE OF ADMISSION: 04/18/2019 DATE OF DISCHARGE: 04/20/2019 PRIMARY CARE PHYSICIAN: Dr. Fabricio Angulo. DISCHARGE DISPOSITION: Home. PRIMARY DISCHARGE DIAGNOSES: 1. Metastatic carcinoma, primary? lung. 2. Metastasis to brain, liver, and lungs. SECONDARY DISCHARGE DIAGNOSES: Hypertension, gastroesophageal reflux disease, dyslipidemia, chronic obstructive pulmonary disease, chronic kidney disease stage 3, chronic respiratory failure with hypoxia on home oxygen, and chronic low back pain. PRIMARY PROCEDURE/OPERATION: While in hospital, the patient had CT-guided lung biopsy. RADIOLOGICAL INVESTIGATION: Chest x-ray showed left upper lobe lung mass, very tiny pneumothorax that has resolved. SIGNIFICANT LABORATORY DATA: WBC 12.5, hemoglobin 14.3, and platelet 225. INR 1.0. Sodium 135, creatinine 1.18, and calcium 10.1. LFT normal. Carcinoembryonic antigen 33.22. TSH 0.76. Urinalysis, unremarkable. Urine osmolality 172, urine creatinine 30.21, sodium 24, and random cortisol 2.9. DISCHARGE MEDICATIONS: 1. Tramadol 50 mg q.6 hourly p.r.n. 2. Amlodipine 5 mg b.i.d. 3. Aspirin 81 mg daily. 4. Lipitor 40 mg p.o. daily. 5. Biotin 5 mg capsule daily. 6. Calcium with vitamin D 1 tablet p.o. b.i.d. 7. Coreg 3.125 mg b.i.d. 8. Celebrex 200 mg daily. 9. Losartan with hydrochlorothiazide 1 tablet p.o. b.i.d. 10. Magnesium 800 mg daily. 11. Singulair 10 mg daily. 12. Protonix 40 mg p.o. daily. 13. Multi mineral 1 tablet p.o. b.i.d. 14. Decadron 4 mg p.o. q.8 hourly for 1 week and then taper as per Oncology. 15. Pepcid 20 mg b.i.d. CONTRAINDICATION: None. CODE STATUS: Full code. INPATIENT STRINGED INSTRUMENT REPAIRER: Arianna Meredith with Oncology, Dr. Conklin was consulted while in hospital, and Dr. Marvin Tavera was consulted while in hospital. ALLERGIES: ACETAMINOPHEN, CODEINE, AZITHROMYCIN, AND HYDROCODONE. DISCHARGE PLAN: Post hospital, the patient will follow up next week with Oncology, Dr. Burch; Dr. Conklin; and Dr. Wong as instructed. HOSPITAL COURSE: An 84-year-old female, who was having intermittent headache and nausea and that is why she was evaluated at [facility]. She had couple of emergency room visit in [facility] with nausea and headache. First time, when she presented at that time, she had CT abdomen and pelvis which showed liver lesion and she was treated symptomatically. She required another emergency room visit for headache and nausea and she was found with brain metastasis. She also had chest x-ray by primary care physician, which showed some pulmonary metastasis and mass. She was transferred to our hospital. She was treated with morphine and Decadron. Her symptoms improved with morphine and Decadron therapy while in hospital. During this admission, we consulted Oncology, Radiation Oncology, and neurosurgeon. While in hospital, we did CT-guided lung mass biopsy and result is pending. At this point, Dr. Conklin discussed with the patient's family member about all different treatment options as well as radiation oncologist discussed with all possible treatment options as well as Oncology also discussed all treatment options, but all treatment option will be decided as an outpatient basis once pathology report comes back. This patient does not want to stay in the hospital. She wants to go home and she will follow up with all oim consultant as instructed. I have seen and examined the patient at bedside today. All her vitals are normal. She is completely asymptomatic. She is pleasant and she wants to go home. Her examination is unchanged and normal. I have spent significant amount of time with the patient and family member about hospital course, diagnosis and the patient expressed understanding. Job ID: [id number]
[2019-04-20 12:07] VITALS: BP 123/69; TEMP 98
--- NOTE | 2019-04-20 17:04 | EKG ---
Test Reason : Blood Pressure : / mmHG Vent. Rate : 083 BPM Atrial Rate : 083 BPM P-R Int : 158 ms QRS Dur : 190 ms QT Int : 448 ms P-R-T Axes : 055 -80 089 degrees QTc Int : 526 ms Electronic ventricular pacemaker Confirmed by JUVENAL GILLIAM DO ([id number]), visual effects editor FLORI POSADAS ([id number]) on 04/20/2019 5:03:58 PM Referred By: Confirmed By:JUVENAL GILLIAM DO
[2019-04-20] MEDS ORDERED: Atorvastatin Calcium 40 MG TAB PO SCH (21:00)
== END 2019-04-20 14:20 | disposition home or self-care (01) | DRG 54 ==
LOC: ERS 03:25 → T4-A 07:19
PROVIDERS: ADMIT Hospitalist; ATTEND Hospitalist
PROC: 0BBG3ZX Excision of Left Upper Lung Lobe, Percutaneous Approach, Diagnostic (ICD-10-PCS; principal; 2019-04-19)
DX: C79.31 Secondary malignant neoplasm of brain (principal); G93.6 Cerebral edema; E87.1 Hypo-osmolality and hyponatremia; J96.11 Chronic respiratory failure with hypoxia; C78.00 Secondary malignant neoplasm of unspecified lung; C78.7 Secondary malignant neoplasm of liver and intrahepatic bile duct; M48.061 Spinal stenosis, lumbar region without neurogenic claudication; G89.29 Other chronic pain; J44.9 Chronic obstructive pulmonary disease, unspecified; E78.5 Hyperlipidemia, unspecified; K21.9 Gastro-esophageal reflux disease without esophagitis; R91.1 Solitary pulmonary nodule; K76.9 Liver disease, unspecified; N18.3 Chronic kidney disease, stage 3 (moderate); I12.9 Hypertensive chronic kidney disease with stage 1 through stage 4 chronic kidney disease, or unspecified chronic kidney disease; M54.5 Low back pain; Z85.3 Personal history of malignant neoplasm of breast; Z90.13 Acquired absence of bilateral breasts and nipples; Z95.0 Presence of cardiac pacemaker; Z90.49 Acquired absence of other specified parts of digestive tract; Z90.89 Acquired absence of other organs; Z90.710 Acquired absence of both cervix and uterus; Z87.891 Personal history of nicotine dependence; Z88.1 Allergy status to other antibiotic agents; Z88.5 Allergy status to narcotic agent; Z79.82 Long term (current) use of aspirin; Z79.899 Other long term (current) drug therapy
CPT/HCPCS: 32405; 36415; 70470; 71045; 77012; 80048; 80053; 81001; 82378; 82533; 82570; 83930; 83935; 84300; 84443; 85025; 85610; 85730; 88305; 88333; 88341; 88342; 93005; 94640; 96374; J0360; J2250; J2270; J3010; J8540